=== PATIENT | female | born 1965 | race Caucasian/White ===

== ENCOUNTER 2023-09-13 15:11 | Outpatient (OUT) | payer MEDICARE, OTHER, SELFPAY ==
--- NOTE | 2023-09-13 15:38 | XR_ITS ---
[address] [address] Patient Name: RICARDA RAMIREZ MRN: [id number] date: 1965 Sex: F Assigned Patient Location: [facility] Current Patient Location: Accession/Order Number: [id number] Exam Date: 09/13/2023 15:20 Report Date: 09/14/2023 08:07 At the request of: SHANNON MCBRIDE Procedure: XR DEXA axial skeleton EXAMINATION: XR DEXA axial skeleton HISTORY: other osteoporosis M81.8 COMPARISON: No relevant comparison available. TECHNIQUE: Dual-energy X-ray absorptiometry (DXA) was performed. FINDINGS: SPINE ANALYSIS: Average bone mineral density is 1.099 g/cm2. T-score (standard deviation relative to young adult mean): -0.7 . HIP ANALYSIS: Lowest bone mineral density is within the right femoral neck, 0.731 g/cm2. T-score (standard deviation relative to young adult mean): -2.2 . XR/XR DEXA axial skeleton IMPRESSION: [employer] Classification: Osteopenia - Moderate Fracture Risk Electronically authenticated by: BONITA FAROOQ Date: 09/14/2023 08:07
== END 2023-09-13 15:12 | disposition home or self-care (01) ==
PROVIDERS: PCP Family Medicine; Visit Provider Psychiatry & Neurology Neurology
DX: M81.8 Other osteoporosis without current pathological fracture (principal); T50.905A Adverse effect of unspecified drugs, medicaments and biological substances, initial encounter; M85.88 Other specified disorders of bone density and structure, other site; M85.80 Other specified disorders of bone density and structure, unspecified site
CPT/HCPCS: 77080